=== PATIENT | female | born 1955 | race Caucasian/White ===

== ENCOUNTER 2021-07-30 06:18 | Day surgery (SDC) | payer MEDICARE, OTHER ==
[2021-07-27 11:49] LABS: COVID AG,FIA SOURCE NASOPHARYNGEAL
[~2021-07-30] VITALS: Ht 147.3 cm; Wt 52.3 kg
[2021-07-30] MEDS ORDERED: LIDOCAINE 2% 30 ML JELLY TP ONE (06:19)
[2021-07-30] MEDS ORDERED: ALBUTEROL SULFATE 2.5 MG/0.5 ML NEB SOLUTION NEB ONE (06:19)
[2021-07-30] MEDS ORDERED: LIDOCAINE 4% 50 ML SOLUTION TP ONE (06:19)
[2021-07-30] MEDS ORDERED: BENZOCAINE 20% 50 MCG/SPRAY 57 GM TP ONE (06:19)
[2021-07-30] MEDS ORDERED: SODIUM CHLORIDE 0.9% 1,000 ML IV ONE (06:30)
[2021-07-30] MEDS ORDERED: SODIUM CHLORIDE 0.9% 1,000 ML ONE (06:36)
[2021-07-30 07:30] LABS: GLUCOMETER DEV NAME(LOC) SDS.; GLUCOSE,POINT OF CARE 116 MG/DL (70-110)
[2021-07-30] MEDS ORDERED: FentaNYL CITRATE PF 100 MCG/2 ML VIAL ONE (07:49)
[2021-07-30] MEDS ORDERED: MIDAZOLAM HCL 5 MG/ML VIAL ONE (07:49)
[2021-07-30] MEDS ORDERED: MethylPREDNISolone SOD SUCC 125 MG/2 ML VIAL IVP ONE (09:15)
[2021-07-30] MEDS ORDERED: MethylPREDNISolone SOD SUCC 125 MG/2 ML VIAL ONE (09:47)
[2021-07-30] MEDS ORDERED: OXYGEN THERAPY IH SCH (20:00)
== END 2021-07-30 11:45 | disposition home or self-care (01) ==
LOC: SURGERY 06:18
PROVIDERS: ATTEND Internal Medicine Critical Care Medicine
DX: J38.4 Edema of larynx (principal); B37.0 Candidal stomatitis; Z88.6 Allergy status to analgesic agent; Z79.899 Other long term (current) drug therapy; Z72.89 Other problems related to lifestyle; Z98.890 Other specified postprocedural states
CPT/HCPCS: 31623; 31624; 71045; 82962; 87015; 87070; 87101; 87205; 87206; 87220; 87426; 88108; 88184; 88185; 88312; C9803; J2250; J2930; J3010; J7030; J7613; Z7610